=== PATIENT | male | born 1950 | race Caucasian/White ===

== ENCOUNTER 2023-12-22 12:21 | Emergency (ER) | payer MEDICARE, OTHER, SELFPAY ==
[2023-12-22 12:34] VITALS: BMI 36.7
--- NOTE | 2023-12-22 12:35 | ED.CPR ---
HPI - CPR General Chief Complaint: Cardiac Arrest/CPR Stated Complaint: WITNESSED ARREST Source: family, EMS and old records reviewed Mode of arrival: EMS Limitations: other (unresponsive ongoing CPR) History of Present Illness HPI narrative: 73 yo male with PMH of cardiomyopathy and AICD, CAD, HTN, DM, DVT was on coumadin, recent fall and had SDH s/p MMA embolization per family and intervention at [facility] he has been home x 1 week and seemed to be doing okay. Overnight he got up and was doing more than he should have. Today he went down the stairs and got very dizzy and was straining. He then c/o feeling dizzy, became altered and put his head down. The family then realized he was no longer responding and called 911. EMS found him apneic, PEA he was intubated but the entire time he has pinpoint pupils concerned he had neurological event. No trauma or drug abuse. Received 5 epi en route, normal BS, PEA and possibly 1 min of ROSC but upon arrival loss of pulses for 30 minutes, patient in ED had high quality CPR about 10 minutes without ROSC no cardiac activity remained in PEA and was at cardiac standstill with unreactive pinpoint pupils. MD complaint: collapsed during activity Onset (ago): hour(s) (prior to arrival ) Timing confirmed by: spouse and family member Bystander CPR performed: No AED applied by bystander/steel crane operator: Yes Shock advised: No Initial findings in the field: unresponsive, agonal and PEA ROSC in the field: Yes (possibly 1 min very brief) Associated injuries: No Associated symptoms: other (was doing more than he should have post brain surgery and then felt dizzy and became unresponsive ) Known history of: recent surgery Treatments prior to arrival: intubation and epinephrine mgs # Related Data Allergies Allergy/AdvReac Type Severity Reaction Status Date / Time Unable to Assess Allergy Verified 12/22/23 12:38 Review of Systems Review of Systems: ROS unable to be obtained due to ongoing CPR [facility] Past Medical History Source: old records reviewed and obtained from family Medical History CHF (congestive heart failure) Diabetes CKD (chronic kidney disease) DVT (deep venous thrombosis) Cardiomyopathy Social History Social History (Updated 12/22/23 @ 13:43 by Ami Hartman DO) Patient Tobacco Use Status: Tobacco use Unknown Physical Exam Vital Signs: Vital Signs: BMI result Body Mass Index 36.7 Appearance: ongoing CPR, unresponsive, severe acute distress. Eyes: pupils pinpoint ENT: Pharynx normal. intubated Neck: short and fat neck CVS: absent heart sounds, no pulses other than with manolo , bruising R flank Respiratory: equal breath sounds with bagging, ETT in place Abdomen: old bruise R flank Skin: thin fragile skin, pale cool and dusky Extremities: 1+ pitting leg edema Neuro: ongoing CPR no response to painful stimuli Medical Decision Making Medical Decision Making MDM Narrative: 73 yo male with PMH of cardiomyopathy and AICD, CAD, HTN, DM, DVT was on coumadin, recent fall and had SDH s/p MMA embolization recent rib fractures who sounds like he did too much at home and strained then felt very dizzy became more weak altered laid his head down then became unresponsive - no signs of trauma, no concern for overdose multiple medical problems could have been new bleed vs TX vs VTE given he was not on his coumadin in light of recent bleed. After prolonged CPR without ROSC resuscitative efforts deemed futile Differential Diagnosis Differential Diagnoses: The differential diagnosis associated with the presentation includes cardiac arrest, TX, VTE, ICH Independent Interpretation I performed an independent interpretation of an: Rhythm Strip (PEA) Independent Historian Clinical information obtained from an independent historian. History obtained from or confirmed by: EMS and Other (sister) External Record Review External record reviewed: Outpatient record Procedures Procedure Narrative Procedure Narrative: 1231 pm bedside echo cardiac standstill no cardiac activity on US, pinpoint unreactive pupils, no corneal reflex, no response to pain, no heart sounds time of 1231pm Critical Care Time Critical Care Time Critical Care Time: Yes Total Critical Care Time: 40 Attestation: review of outpatient records, family discussion, arrest care I attest to this time spent taking care of the patient Discharge Plan Discharge Clinical Impression: Cardiac arrest Patient Disposition: Date/Time: 12/22/23 12:31
[2023-12-22 12:37] VITALS: PULSE 0
--- NOTE | 2023-12-22 12:38 | PC.NURSE ---
TOD 12:31.
--- NOTE | 2023-12-22 18:03 | PC.NURSE ---
[place] [facility] called, saying they are refusing the patient as a donor, and is released.
[2023-12-25 07:26] LABS: Glucose, Whole Blood 150 mg/dL (60-115)
== END 2023-12-22 16:37 | disposition expired ==
LOC: HO.ED 13:33
PROVIDERS: Emergency Provider Emergency Medicine
DX: I46.9 Cardiac arrest, cause unspecified (principal); R60.0 Localized edema; E11.22 Type 2 diabetes mellitus with diabetic chronic kidney disease; I13.0 Hypertensive heart and chronic kidney disease with heart failure and stage 1 through stage 4 chronic kidney disease, or unspecified chronic kidney disease; N18.9 Chronic kidney disease, unspecified; I50.9 Heart failure, unspecified; Z86.718 Personal history of other venous thrombosis and embolism
CPT/HCPCS: 82947; 96374; 99282; 99285; J0171